=== PATIENT | female | born 1970 | race Caucasian/White ===

== ENCOUNTER 2016-08-08 08:24 | Inpatient (IN) | payer BC ==
[2016-07-10 14:18] VITALS: BMI 39.0
--- NOTE | 2016-07-10 14:42 | PAT Medication Instructions ---
Service Date Jul 10, 2016. Current Home Medication List Baclofen (Lioresal), 20 MG PO TID PRN for PRN Citalopram Hydrobromide (Celexa), 10 MG PO HS Omeprazole (Prilosec), 20 MG PO HS Tramadol (Ultram), 50 MG PO Q6H PRN for industrial eng Instructions For Your Scheduled Surgery - Hold the following medications the morning of surgery: Baclofen (Lioresal), 20 MG PO TID PRN for PRN - Take the following medications the morning of surgery with a sip of water: Tramadol (Ultram), 50 MG PO Q6H PRN for RN (okay to take up to 4 hours prior to surgery if needed) - Take the following medications as scheduled the night before surgery: Omeprazole (Prilosec), 20 MG PO HS Citalopram Hydrobromide (Celexa), 10 MG PO HS Baclofen (Lioresal), 20 MG PO TID PRN for PRN Tramadol (Ultram), 50 MG PO Q6H PRN for RN If you have any questions please call us at [phone] (Megha Worrell PA-C) or [phone] or [phone]
--- NOTE | 2016-07-10 15:04 | DIAGNOSTIC IMAGING REPORT ---
CHEST 2 VIEWS ROUTINE CLINICAL HISTORY: PAT preoperative evaluation COMPARISON STUDY: No previous studies for comparison. FINDINGS: The bones soft tissues and hemidiaphragms are normal. The cardiomediastinal silhouette is normal. The lungs are clear. The pulmonary vasculature is normal. IMPRESSION: Negative chest. Electronically signed by: Rohith Potter M.D. 07/10/2016 3:02 PM
[2016-07-10 15:11] LABS: BASO % 0.6 %; BASO ABS # 0.06 K/uL (0-0.2); COMPLETE YES; EOS % 1.7 %; HEMATOCRIT 39.1 % (37-47); IG% 0.2 %; LYMPH % 37.8 %; LYMPH ABS # 3.61 K/uL (1.2-3.4); MEAN CELL VOLUME 88.1 fL (80-100); MEAN CORPUSCULAR HEMOGLOBIN 30.2 pg (25-34); MEAN CORPUSCULAR HGB CONC 34.3 g/dl (32-36); MONO % 5.7 %; PLATELET COUNT 197 K/uL (130-400); RED BLOOD COUNT 4.44 M/uL (4.2-5.4); WHITE BLOOD COUNT 9.54 K/uL (4.8-10.8)
[2016-07-10 15:15] LABS: URINE APPEARANCE CLEAR (CLEAR); URINE BILIRUBIN NEG (NEG); URINE COLOR YELLOW; URINE NITRITE NEG (NEG); URINE SPECIFIC GRAVITY 1.006 (1.000-1.030); UROBILINOGEN NEG (NEG)
[2016-07-10 15:21] LABS: MANUAL MICROSCOPIC REQUIRED? NO; REVIEW REQ? NO
[2016-07-10 15:50] LABS: BUN/CREATININE RATIO 11.1 (10-20); CREATININE 0.98 mg/dl (0.60-1.20); POTASSIUM 3.4 mmol/L (3.5-5.1)
[2016-07-10 16:02] LABS: CALCIUM 8.9 mg/dl (8.5-10.1)
[2016-08-08] VITALS (8 sets, daily range): BP systolic 97–129; BP diastolic 60–82; PULSE 61–78; TEMP 36.5–36.8; O2SAT 90–99; Ht 165.1 cm; Wt 106.6 kg
[~2016-08-08] VITALS: Ht 165.1 cm; Wt 106.6 kg
[~2016-08-08 08:24] MED LIST: BACL10TA PO; CEFAZOLIN 2000 MG/60 ML D5W IV SCH; CITA10TA8 PO; CeleBREX 200 MG CAP PO SCH; PREGABALIN 75 MG CAP PO SCH; PRLSR20 PO; TRAM-10 PO
[2016-08-08] MEDS: LACTATED RINGER'S 1000ML 1,000 ML IV SCH ×2 (09:15→13:16)
[2016-08-08] MEDS ORDERED: MIDAZOLAM HCL 1 MG/ML 2ML VIAL ONE (09:49)
[2016-08-08] MEDS ORDERED: FENTANYL CITRATE INJ 50 MCG/1 ML 2 ML VIAL ONE ×4 (09:49→12:18)
[2016-08-08] MEDS ORDERED: TAPE50TA5 PO (10:02)
[2016-08-08] MEDS ORDERED: PROMETHAZINE HCL INJ 6.25 MG in SODIUM CHLORIDE 0.9% 50ML 50 ML IV PRN (10:15)
[2016-08-08] MEDS ORDERED: ONDANSETRON INJ 2 MG/ML 2 ML VIAL IV PRN ×2 (10:15→12:00)
[2016-08-08] MEDS ORDERED: EpHEDrine SULFATE INJ 50 MG/ML AMP IV PRN (10:15)
[2016-08-08] MEDS ORDERED: FENTANYL CITRATE INJ 50 MCG/1 ML 2 ML VIAL IV PRN (10:15)
[2016-08-08] MEDS ORDERED: ATROPINE SULFATE 0.1 MG/ML 5ML SYR IV PRN (10:15)
[2016-08-08] MEDS ORDERED: HYDROmorphone INJ 1 MG/ML SYR IV PRN ×2 (10:15→12:00)
--- NOTE | 2016-08-08 10:17 | History and Physical ---
History & Physical Date Aug 08, 2016. Chief Complaint LBP and bilateral leg pain History of Present Illness The patient is a 46 year old female with complaints of above who failed non op management of L4-S1 DDD/facet djd/stenosis. She has BLE radicular pain L>R. no numbness or weakness. Past Medical/Surgical History Medical Problems: (1) Low back pain Surgical Problems: (1) S/P hysterectomy Breast reductioon periph neuropathy smoker obesity Additional History Hepatic Disease: No Endocrine Disorder: No Kidney Disease: No Hypertension: No Heart Disease: No Bleeding Tendencies: No Infectious Diseases: No Allergies Coded Allergies: Codeine (Verified Allergy, Intermediate, GI SYMPTOMS VOMITING, RASH, ) Hydrocodone (Verified Allergy, Intermediate, ITCHING, 08/08/16) Oxycodone (Verified Allergy, Intermediate, ITCHING, 08/08/16) Home Medications Scheduled Citalopram Hydrobromide (Celexa), 10 MG PO HS Omeprazole (Prilosec), 20 MG PO HS Tapentadol Hcl (Nucynta), 50 MG PO Q4 Scheduled PRN Baclofen (Lioresal), 20 MG PO TID PRN for PRN Tramadol (Ultram), 50 MG PO Q6H PRN for RN Physical Examination Skin: warm/dry Eyes: normal inspection, EOMI ENT: normal ENT inspection Head: normocephalic, atraumatic Neck: supple, trachea midline Respiratory/Chest: lungs clear, normal breath sounds, no respiratory distress Cardiovascular: regular rate, rhythm Back: normal inspection Extremities: normal inspection, normal range of motion Neurologic/Psych: no motor/sensory deficits, alert, normal reflexes, oriented x 3 Diagnosis L4-S1 stenosis, facet djd, DDD Plan of Treatment L4-S1 decomp/PLF
--- NOTE | 2016-08-08 10:43 | Anesthesiology Progress Note ---
Anesthesia Post Op Note Date & Time Aug 08, 2016 at 10:42 Vital Signs Pain Intensity: 6 Vital Signs Past 12 Hours Date Time Temp Pulse Resp B/P Pulse Ox O2 Delivery O2 Flow Rate FiO2 08/08/16 09:08 36.8 69 18 129/82 95 Room Air Notes Mental Status: alert / awake / arousable, participated in evaluation Pt Amnestic to Procedure: Yes Nausea / Vomiting: adequately controlled Pain: adequately controlled Airway Patency, RR, SpO2: stable & adequate BP & HR: stable & adequate Hydration State: stable & adequate Anesthetic Complications: no major complications apparent
[2016-08-08] MEDS ORDERED: HYDROmorphone INJ 2 MG/ML SYR/VIAL ONE ×3 (10:48→12:28)
[2016-08-08] MEDS ORDERED: DEXAMETHASONE SOD INJ 4 MG/ML VIAL ONE (11:23)
[2016-08-08] MEDS ORDERED: EpHEDrine SULFATE 50MG/5ML SYR ONE ×2 (11:23→11:56)
[2016-08-08] MEDS ORDERED: LIDOCAINE HCL 2% 2 ML VIAL (20MG/ML) ONE (11:23)
[2016-08-08] MEDS ORDERED: PROPOFOL IV EMULSION 10 MG/ML 20 ML VIAL IV ONE (11:23)
[2016-08-08] MEDS ORDERED: ROCURONIUM BROMIDE 10 MG/ML 5 ML VIAL ONE (11:23)
[2016-08-08] MEDS ORDERED: ONDANSETRON INJ 2 MG/ML 2 ML VIAL ONE ×2 (11:23→11:56)
[2016-08-08] MEDS ORDERED: DURASEAL DURAL SEALANT 5ML TOP ONE (11:43)
[2016-08-08] MEDS ORDERED: BUPIVACAINE/EPINEPHRINE 0.5% MPF 1:200,000 30 ML VIAL INJ ONE (11:43)
[2016-08-08] MEDS ORDERED: THROMBIN 5000 UNITS KIT TOP ONE (11:43)
[2016-08-08] MEDS ORDERED: THROMBIN FOR SOLN 20000 UNIT KIT TOP ONE (11:43)
[2016-08-08] MEDS ORDERED: BACITRACIN 50000 UNIT VIAL IR ONE (11:54)
[2016-08-08] MEDS ORDERED: FLOSEAL HEMOSTATIC MATRIX 10ML TOP ONE (11:54)
[2016-08-08] MEDS ORDERED: SODIUM CHLORIDE 0.9% 1000ML 1,000 ML IV SCH (11:55)
--- NOTE | 2016-08-08 11:55 | [facility] Post Operative Brief Note ---
Immediate Operative Summary Operative Date Aug 08, 2016. Pre-Operative Diagnosis L4-S1 stenosis, facet degenerative joint disease, Degenerative disc disease Post-Operative Diagnosis same as preop Procedure(s) Performed L4-s1 psf Surgeon Dr. Clarke Music Therapist [employer] Surgeon(s) Bharath Juares PA-C Estimated Blood Loss 100 Findings dict Specimens none per surgeon
[2016-08-08] MEDS ORDERED: GLYCOPYRROLATE INJ 0.2 MG/ML VIAL ONE (11:56)
[2016-08-08] MEDS ORDERED: NEOSTIGMINE METHYLSULFATE 1 MG/ML 10ML VIAL ONE (11:56)
[2016-08-08] MEDS ORDERED: PROMETHAZINE HCL INJ 12.5 MG in SODIUM CHLORIDE 0.9% 50ML 50 ML IV PRN (12:00)
[2016-08-08] MEDS ORDERED: BACLOFEN 10 MG TAB PO PRN (12:00)
[2016-08-08] MEDS ORDERED: ALUMINUM/MAGNESIUM SUSP 30 ML UDC PO PRN (12:00)
[2016-08-08] MEDS ORDERED: hydrOXYzine HCL 25 MG TAB PO PRN (12:00)
[2016-08-08] MEDS ORDERED: METOCLOPRAMIDE HCL INJ 5 MG/ML 2 ML VIAL IV PRN (12:00)
[2016-08-08] MEDS ORDERED: FAMOTIDINE 20 MG TAB PO PRN (12:00)
[2016-08-08] MEDS ORDERED: BISACODYL 10 MG SUPP PR PRN (12:00)
[2016-08-08] MEDS ORDERED: MAGNESIUM HYDROXIDE SUSP 30 ML UDC PO PRN (12:00)
[2016-08-08] MEDS ORDERED: LORAZEPAM INJ 0.5 MG in SYRINGE 0.75 ML IV PRN (12:00)
[2016-08-08] MEDS ORDERED: SOD PHOSPHATE/SOD BIPHOSPHATE ENEMA 132 ML BTL PR PRN (12:00)
[2016-08-08] MEDS ORDERED: TAPENTADOL HCL 50 MG TAB PO PRN (12:00)
[2016-08-08] MEDS ORDERED: ACETAMINOPHEN IV 100 ML IV PRN (12:00)
[2016-08-08] MEDS ORDERED: NALOXONE HCL 0.4 MG/1 ML VIAL/CARP IV PRN ×2 (12:00)
[2016-08-08] MEDS ORDERED: ESMOLOL HCL 10 MG/ML 10 ML VIAL ONE (12:16)
--- NOTE | 2016-08-08 12:16 | DIAGNOSTIC IMAGING REPORT ---
LUMBAR SPINE, INTRAOPERATIVE FLUOROSCOPY HISTORY: L4-S1 decompression and fusion. FLUOROSCOPY TIME: 9 seconds. FINDINGS: Intraoperative fluoroscopy was provided for the lumbar spine. 2 fluoroscopic spot images were obtained. Posterior decompression fusion from L4 through S1 with pedicle screws and rods. The hardware appears intact. There is an L5-S1 disc spacer. IMPRESSION: Fluoroscopy provided for a L4-S1 posterior decompression and fusion. Electronically signed by: Colby Tyson M.D. 08/08/2016 12:14 PM
[2016-08-08] MEDS ORDERED: HYDROmorphone INJ 1 MG/ML SYR ONE (12:58)
[2016-08-08] MEDS ORDERED: NURSING VERBAL MED ORDER ONE ×3 (13:15→16:15)
--- NOTE | 2016-08-08 13:25 | Anesthesiology Progress Note ---
Anesthesia Post Op Note Date & Time Aug 08, 2016 at 13:25 Vital Signs Pain Intensity: 7 Vital Signs Past 12 Hours Date Time Temp Pulse Resp B/P Pulse Ox O2 Delivery O2 Flow Rate FiO2 08/08/16 13:10 80 12 120/70 98 Nasal Cannula 2 08/08/16 13:00 78 16 106/58 94 Nasal Cannula 2 08/08/16 12:50 80 20 95/57 98 Nasal Cannula 2 08/08/16 12:40 81 18 139/80 98 Nasal Cannula 2 08/08/16 12:30 79 14 117/85 100 Mask 10 08/08/16 12:20 87 16 125/78 94 Mask 10 08/08/16 12:14 37.0 89 17 125/69 97 Mask 10 08/08/16 09:08 36.8 69 18 129/82 95 Room Air Notes Mental Status: alert / awake / arousable, participated in evaluation Pt Amnestic to Procedure: Yes Nausea / Vomiting: adequately controlled Pain: adequately controlled Airway Patency, RR, SpO2: stable & adequate BP & HR: stable & adequate Hydration State: stable & adequate Anesthetic Complications: no major complications apparent
[2016-08-08] MEDS ORDERED: LACTATED RINGER'S 1000ML 1,000 ML IV SCH (14:30)
[2016-08-08] MEDS: DEXAMETHASONE INJ 6 MG in SYRINGE 0 ML IV SCH (17:48)
[2016-08-08] MEDS: CEFAZOLIN IV 2,000 MG in DEXTROSE 5% 50ML 50 ML IV SCH (17:48)
[2016-08-08] MEDS: TRAMADOL HCL 50 MG TAB PO PRN ×2 (18:15→22:29)
[2016-08-08] MEDS ORDERED: PANTOprazole SOD 40 MG TAB PO SCH (21:00)
[2016-08-08] MEDS ORDERED: CITALOPRAM 20 MG TAB PO SCH (21:00)
[2016-08-08] MEDS ORDERED: DOCUSATE SODIUM/SENNA 50/8.6MG TAB PO SCH (21:00)
[2016-08-08] MEDS: LORAZEPAM 0.5 MG TAB PO PRN ×2 (22:29→23:42)
[2016-08-09 00:17] VITALS: BP 115/74
[2016-08-09] MEDS ORDERED: NURSING VERBAL MED ORDER ONE (01:30)
[2016-08-09] MEDS: CEFAZOLIN IV 2,000 MG in DEXTROSE 5% 50ML 50 ML IV SCH (01:37)
[2016-08-09] MEDS: DEXAMETHASONE INJ 6 MG in SYRINGE 0 ML IV SCH ×2 (01:38→09:15)
[2016-08-09 03:48] VITALS: BP 120/71; PULSE 56; TEMP 36.7; O2SAT 90
[2016-08-09] MEDS ORDERED: DC PCA SCH (06:00)
[2016-08-09 06:44] LABS: COMPLETE YES; HEMATOCRIT 34.2 % (37-47); IG% 0.3 %; LYMPH % 10.3 %; LYMPH ABS # 1.21 K/uL (1.2-3.4); MEAN CELL VOLUME 88.1 fL (80-100); MEAN CORPUSCULAR HEMOGLOBIN 30.2 pg (25-34); MEAN CORPUSCULAR HGB CONC 34.2 g/dl (32-36); MEAN PLATELET VOLUME 11.9 fL (7.4-10.4); MONO % 1.1 %; NEUT % 88.3 %; PLATELET COUNT 163 K/uL (130-400); RED BLOOD COUNT 3.88 M/uL (4.2-5.4); WHITE BLOOD COUNT 11.73 K/uL (4.8-10.8)
[2016-08-09 07:24] LABS: BUN/CREATININE RATIO 10.8 (10-20); CREATININE 0.75 mg/dl (0.60-1.20); POTASSIUM 4.2 mmol/L (3.5-5.1)
[2016-08-09 07:59] VITALS: BP 110/60; PULSE 56; TEMP 36.7; O2SAT 94
[2016-08-09 08:14] VITALS: O2SAT 94
--- NOTE | 2016-08-09 08:56 | Anesthesiology Progress Note ---
Anesthesia Post Op Note Date & Time Aug 09, 2016 at 08:55 Vital Signs Pain Intensity: 0.0 Vital Signs Past 12 Hours Date Time Temp Pulse Resp B/P Pulse Ox O2 Delivery O2 Flow Rate FiO2 08/09/16 08:14 94 Room Air 08/09/16 07:59 36.7 56 18 110/60 94 Room Air 08/09/16 07:10 Room Air 08/09/16 03:48 36.7 56 16 120/71 90 Room Air 08/09/16 00:17 115/74 08/08/16 23:35 Room Air 08/08/16 23:17 36.7 61 16 97/60 94 Room Air Notes Mental Status: alert / awake / arousable, participated in evaluation Pt Amnestic to Procedure: Yes Nausea / Vomiting: adequately controlled Pain: adequately controlled Airway Patency, RR, SpO2: stable & adequate BP & HR: stable & adequate Hydration State: stable & adequate Anesthetic Complications: no major complications apparent
[2016-08-09] MEDS: TRAMADOL HCL 50 MG TAB PO PRN (09:20)
[2016-08-09] MEDS ORDERED: TRAM-10 PO (11:00)
--- NOTE | 2016-08-09 11:00 | Discharge Instructions ---
Discharge Instructions Admission Reason for Admission: Lumbar Spinal Stenosis Discharge Discharge Diagnosis / Problem: ddd Discharge Goals Goal(s): Decrease discomfort Activity Recommendations Activity Limitations: per Instructions/Follow-up section . Instructions / Follow-Up Instructions / Follow-Up ACTIVITY RECOMMENDATIONS: SELF CARE INSTRUCTIONS AFTER THORACIC/LUMBAR FUSIONS 1. You may walk to your tolerance. It is good exercise for your legs and back. Expect some back and intermittent leg aches and pains. 2. You may perform "counter-top" level activities (make a sandwich, [place] with a project, etc.). 3. No bending or lifting of more than 10 pounds or back twisting of any nature (roll like a log when turning in bed). 4. You may ride in a car for 20-30 minutes at a time. No driving until after your first visit with your doctor. 5. Frequent changes of position and restricting sitting to 30 minutes at a time will help limit the amount of back spasms and stiffness you may experience. 6. You may discontinue the use of ambulatory aids (cane, crutches, etc.) once your strength and confidence allow. 7. You may investment sales assistant the shower and let water strike your incision when you arrive home at least once daily. Do not take a tub bath, sit in a hot tub or go into a swimming pool until after your first recheck in the office. SPECIAL CARE INSTRUCTIONS: VERY IMPORTANT TO READ AND REVIEW A. Your surgical incision has been closed with a cosmetic suture under the skin that will dissolve in about 6 weeks. In 14 days, you can use a pair of clean scissors and cut the suture that is left outside of the skin at the ends of your incision. 1. The small skin tapes can be removed 7 days after surgery if they have not fallen off by that point. 2. You may keep the wound open to air as much as possible to promote healing after post-op day number 5 unless told otherwise by your doctor. 3. If you think the wound looks like it is becoming infected (redness or worsening drainage) and/or you are experiencing fever, chill or worsening back pain and muscle spasms, contact the office so that we may evaluate you as soon as possible. B. Complications are uncommon, but please contact us if you have any signs or symptoms of: 1. wound infection (fever higher than 102.5 degrees F, redness, separation of wound, drainage, or increasing pain from the incision) 2. blood clots in legs (pain, swelling, redness and warmth in legs) 3. urinary tract infection (fever higher than 102.5 degrees F, burning upon urination or increased frequency of urination) 4. nerve problems (inability to walk on your toes or heels, numbness, loss of bowel or bladder control) 5. any other symptoms that concern you C. Please call the office at if you have any concerns or questions about your operation or recovery. D. No smoking! Smoking drastically decreases the chance of a solid fusion. E. Do not take any anti-inflammatory medications (Indocin, Advil, Motrin, Aspirin, Naprosyn, etc.) as these may inhibit the chance of a solid fusion. Tylenol is okay to take for pain. MANAGING PAIN AFTER SPINAL SURGERY 1. Narcotic medication is intended for short-term use and will be provided for surgical pain. Surgical pain usually lasts for a period of 4-6 weeks. Narcotic medication includes Percocet, Vicodin, Darvocet, Tylenol #3 or Lortab. 2. Longer-term pain is more appropriately treated with non-narcotic medication such as Tylenol ES. 3. Muscle spasm is not appropriately treated with narcotics. Muscle relaxers such as Soma, Flexeril or Skelaxin can be used along with Tylenol ES. 4. Remember that we all live with some "aches and pains". This is not unusual or uncommon after an injury or as we get older. a. Back pain is expected and may include muscle spasms for 4 to 6 weeks after surgery. The pain should gradually improve. If the pain worsens for no apparent reason, please contact the office. b. Intermittent leg pain may also be experienced and should not be concerned about unless it worsens for no apparent reason. If so, please contact the office. 5. We will provide appropriate medication within the normal guidelines of their prescribed use. We will also be very cautious and aware of potential abuse and extended duration of patients' medication needs. a. Pain medications are for your comfort and to assist with sleep and rest so that the tissue can heal. They are not provided in order to return to normal activity and should not be used through the day. To do so or worsening pain at night can result from ongoing tissue damage and development of tolerance to the prescribed medicine. 6. Please allow 2-3 days to process refills. Prescriptions will not be mailed but must be picked up at the office. FOLLOW UP VISIT: Keep your scheduled follow-up appointment. Any questions, please call the office at . Current Hospital Diet Patient's current hospital diet: Regular Diet Discharge Diet Recommended Diet: Regular Diet Procedures Procedures Performed: L4-S1 Decompression and Instrumented Fusion; Interbody Fusion with application of interbody cage at L5-S1, Bone Morphogenetic Protein, Use of Arteriocyte Pending Studies Studies pending at discharge: no Medical Emergencies . Who to Call and When: Medical Emergencies: If at any time you feel your situation is an emergency, please call 911 immediately. . Non-Emergent Contact Non-Emergency issues call your: Primary Care Provider . "Provider Documentation" section prepared by Brad Clarke. VTE Core Measure Inpt VTE Proph given/why not?: SCD's
--- NOTE | 2016-08-09 11:02 | Orthopedic Progress Note ---
Orthopedic Progress Note Date of Service Aug 09, 2016. Subjective Post OP Day: 1 Reports: feeling well, pain controlled w PO medications Objective calves soft nontender, N/V intact, dressing C/D/I, A&O x3, hemovac drainage Date Time Temp Pulse Resp B/P Pulse Ox O2 Delivery O2 Flow Rate FiO2 08/09/16 08:14 94 Room Air 08/09/16 07:59 36.7 56 18 110/60 94 Room Air 08/09/16 07:10 Room Air 08/09/16 03:48 36.7 56 16 120/71 90 Room Air 08/09/16 00:17 115/74 08/08/16 23:35 Room Air 08/08/16 23:17 36.7 61 16 97/60 94 Room Air 08/08/16 19:29 36.8 77 20 120/75 97 Room Air 08/08/16 17:25 36.6 73 16 104/66 98 Room Air 08/08/16 16:11 36.6 78 16 113/76 90 Room Air 08/08/16 15:30 Nasal Cannula 2.0 08/08/16 15:14 36.5 71 18 109/73 93 Nasal Cannula 2.0 08/08/16 14:51 76 16 107/70 94 2.0 08/08/16 14:27 Nasal Cannula 2.0 08/08/16 14:24 36.6 72 16 110/72 99 Nasal Cannula 2.0 08/08/16 14:23 99 Nasal Cannula 2.0 08/08/16 13:40 78 14 121/59 94 Nasal Cannula 2 08/08/16 13:30 71 13 99/73 97 Nasal Cannula 2 08/08/16 13:20 36.3 73 14 121/60 97 Nasal Cannula 2 08/08/16 13:10 80 12 120/70 98 Nasal Cannula 2 08/08/16 13:00 78 16 106/58 94 Nasal Cannula 2 08/08/16 12:50 80 20 95/57 98 Nasal Cannula 2 08/08/16 12:40 81 18 139/80 98 Nasal Cannula 2 08/08/16 12:30 79 14 117/85 100 Mask 10 08/08/16 12:20 87 16 125/78 94 Mask 10 08/08/16 12:14 37.0 89 17 125/69 97 Mask 10 Laboratory Results 24 Hours: Test 08/09/16 06:05 White Blood Count 11.73 K/uL Red Blood Count 3.88 M/uL Hemoglobin 11.7 g/dL Hematocrit 34.2 % Mean Corpuscular Volume 88.1 fL Mean Corpuscular Hemoglobin 30.2 pg Mean Corpuscular Hemoglobin Concent 34.2 g/dl Platelet Count 163 K/uL Mean Platelet Volume 11.9 fL Neutrophils (%) (Auto) 88.3 % Lymphocytes (%) (Auto) 10.3 % Monocytes (%) (Auto) 1.1 % Eosinophils (%) (Auto) 0.0 % Basophils (%) (Auto) 0.0 % Neutrophils # (Auto) 10.36 K/uL Lymphocytes # (Auto) 1.21 K/uL Monocytes # (Auto) 0.13 K/uL Eosinophils # (Auto) 0.00 K/uL Basophils # (Auto) 0.00 K/uL Assessment & Plan Assessment: doing great Plan: d/c home if drain slows. Discharge Planning Discharge Planning: home Pain Management: Ultram DVT Prophylaxis: TEDs, SCDs
[2016-08-09 11:25] VITALS: BP 110/60; PULSE 56; TEMP 36.7; O2SAT 94
[2016-08-10] MEDS ORDERED: POLYETHYLENE (MIRALAX) 17 GM PACK PO SCH (06:00)
--- NOTE | 2016-08-13 19:12 | OPERATIVE REPORT ---
DATE OF OPERATION: 08/08/2016 PREOPERATIVE DIAGNOSES: L5-S1 and L4-L5 spinal stenosis, facet arthrosis and degenerative disc disease. POSTOPERATIVE DIAGNOSES: Same. PROCEDURES: 1. L4 and L5 laminectomies with left L4-L5 and L5-S1 medial facetectomies. 2. Segmental pedicle screw instrumentation -- bilateral L4, L5 and S1 with K2M Kane pedicle screws. 3. Posterolateral fusion L4-S1 -- bilateral with Infuse BMP on a collagen sponge, tricalcium phosphate, local bone, bone putty, bone marrow aspirate. 4. Left L5-S1 transforaminal lumbar interbody fusion with K2M titanium mesh through the interbody cage, bone putty, bone marrow aspirate and Infuse BMP. 5. Right iliac crest bone marrow aspiration, stem cell concentrate with Arteriocyte, application of bone graft. SURGEON: Dr. Clarke. HAND BINDER CUTTER: Tod Juares PA-C. Please note he participated in all portions of the procedure and was critical for performance of the procedure, participated in positioning, prepping, draping, retraction and wound closure. ANESTHESIA: General endotracheal anesthesia. COMPLICATIONS: None. ESTIMATED BLOOD LOSS: Per anesthesia record. PROCEDURE IN DETAIL: After identification of patient and operative level, she was brought to the OR where she underwent induction of general anesthesia. She was then positioned prone on [facility] OR table with all bony prominences well padded. Care was taken to avoid pressure on the periorbital area. Lumbosacral area was sterilely prepped and draped in usual fashion. Antibiotics were administered. Time-out was performed. Level was confirmed and skin incision was infiltrated with 0.5% Marcaine with epinephrine. I made a skin incision from spinous process of L3 to the sacrum, performed routine posterior exposure of the tips of the transverse process and placed Gelpi retractors. I confirmed level with fluoroscopy and then did a decompression with removal of lamina on the left at L4-5 and L5-S1 as well as the intervening ligamentum flavum and the medial facets to accomplish decompression as necessary based upon MRI findings. I then palpated all nerve roots that were decompressed at L4, L5 and S1 and then applied FloSeal. I placed pedicle screws bilaterally at L4, L5 and S1 with K2M Kane pedicle screws. I checked screw lengths, trajectory and position with fluoroscopy. I then did a complete discectomy on the left at L5-S1, prepared the disk space for cage insertion. After preparation of the disk space, I filled the cage with local bone, bone marrow aspirate, bone putty and small strip of Infuse and inserted into the disc, restored the disc height nicely. It was stable following insertion. I then lowered the Jered frame to restore lordosis, applied rods and end caps for final tightening from L4 to the sacrum, then irrigated with bacitracin solution. Bone marrow aspirate was taken from the right iliac crest via separate stab incision, concentrated with Arteriocyte and mixed with bone graft. I then decorticated the transverse process of L4, L5 and the sacral ala bilaterally with a high speed bur and packed the lateral gutters with bone graft mixture. I then confirmed hemostasis and closed in layered fashion over ARTUR drain. All sponge and needle counts were correct at the end of the case. I attest to the content of the Intraoperative Record and any orders documented therein. Any exceptio ns are noted below.
--- NOTE | 2016-08-19 00:15 | DISCHARGE SUMMARY ---
PRINCIPAL DIAGNOSIS: L5-S1 and L4-L5 spinal stenosis and facet arthrosis with degenerative disc disease. POSTOPERATIVE DIAGNOSIS: Removal of L4-S1 decompression and fusion procedure. SURGEON: Dr. Brad Clarke. SPECIAL EDUCATION INCLUSION TEACHER: Tod Juares PA-C. HISTORY OF PRESENT ILLNESS: Please refer to EMR. HOSPITAL COURSE: On 08/08/2015, Ms. Villa was admitted to [facility] with the above diagnosis. She was taken to preoperative holding where she was identified and evaluated and cleared for surgical procedure. Transported to the operating room, introduced with general endotracheal anesthesia. Sterile conditions were set and she successfully underwent the above procedure without complication or issues. She was awakened from anesthesia in stable and satisfactory condition and transported to postoperative recovery. Here her vital signs and pain were monitored and managed. She remained medically stable. She was taken to the orthopedic floor for continued care. Throughout her stay, her vital signs and labs were monitored and managed. Her pain was well controlled. She participated in physical therapy with no complications or issues. DVT and GI prophylactic measures were taken. The patient remained medically stable with no iatrogenic or postoperative complications. She was evaluated on 08/09/2016 by physician and indicated for return home. On this date, she was discharged from [facility]. DISPOSITION: Home. DISPOSITION CONDITION: Stable. NOTED COMPLICATIONS OR ISSUES: Zero. DISCHARGE INSTRUCTIONS: Please refer to EMR.
== END 2016-08-09 12:23 | disposition home health service (06) | DRG 460 ==
LOC: ENRESERVTM → ENRESERVDT → C.ACU 08:24 → C.3E 11:58
PROVIDERS: ADMIT Orthopaedic Surgery Orthopaedic Surgery of the Spine; ATTEND Orthopaedic Surgery Orthopaedic Surgery of the Spine
PROC: 0ST40ZZ Resection of Lumbosacral Disc, Open Approach (ICD-10-PCS; 2016-08-08)
PROC: 07DR3ZZ Extraction of Iliac Bone Marrow, Percutaneous Approach (ICD-10-PCS; 2016-08-08)
PROC: 3E0V0GB Introduction of Recombinant Bone Morphogenetic Protein into Bones, Open Approach (ICD-10-PCS; 2016-08-08)
PROC: 0SG30A1 (ICD-10-PCS; principal; 2016-08-08 10:15)
DX: M48.07 Spinal stenosis, lumbosacral region (principal); M51.37 Other intervertebral disc degeneration, lumbosacral region; E66.9 Obesity, unspecified; F17.210 Nicotine dependence, cigarettes, uncomplicated; G62.9 Polyneuropathy, unspecified; Z90.710 Acquired absence of both cervix and uterus; Z68.39 Body mass index [BMI] 39.0-39.9, adult; Z88.5 Allergy status to narcotic agent; Z79.899 Other long term (current) drug therapy

== ENCOUNTER 2022-11-02 20:49 | Observation (INO) ==
[2022-11-02] MEDS ORDERED: ONDANSETRON INJ 2 MG/ML 2 ML VIAL IV STA (21:45)
[2022-11-02] MEDS ORDERED: MoRPHine SULFATE 4 MG/ML 1 ML CARP\\VIAL IV STA ×2 (21:45→23:20)
[2022-11-02] MEDS ORDERED: FAMOTIDINE 20MG IV PUSH 20 MG/5 ML SYR IV STA (21:45)
[2022-11-02] MEDS ORDERED: SODIUM CHLORIDE 0.9% 1000ML 1,000 ML IV STA (21:45)
[2022-11-02 22:04] LABS: Appearance Urine Clear (Clear); Bilirubin Urine Negative (Negative); Blood Urine Negative (Negative); Color Urine Yellow; Glucose Urine UA Negative (Negative); Ketones Urine Trace (Negative); Leukocyte Esterase Urine Negative (Negative); Nitrite Urine Negative (Negative); Protein Urine Negative (Negative); Urobilinogen Urine Negative (Negative); pH Urine 8.5 (4.5-7.5)
--- NOTE | 2022-11-02 22:04 | Emergency Department Note ---
History of Present Illness General Chief complaint: Abdominal Pain Stated complaint: ABDOMINAL PAIN, VOMITING Time Seen by Provider: 11/02/22 21:25 History of Present Illness Maximum Pain Intensity: 9 This 52-year-old female presents to the ER with family complaining of epigastric right upper quadrant pain tonight after eating pulled pork for dinner. She has known gallstones with sludge. She is preparing to have a gastric bypass surgery and had a scan that showed this. Patient denies chest pain, dyspnea, fevers, vomiting, diarrhea, flulike illness. Feels different than her reflux. Home Medications Medication Instructions Recorded Confirmed Type cyanocobalamin (vitamin B-12) 1,000 mcg PO QAM 10/03/20 11/02/22 History 1,000 mcg tablet (Vitamin B-12) duloxetine 60 mg capsule,delayed 60 mg PO HS 10/03/20 11/02/22 History release (Cymbalta) omeprazole magnesium 20 mg 20 mg PO QAM 10/06/20 11/02/22 History capsule,delayed release cyclobenzaprine 10 mg tablet 10 mg PO HS PRN Muscle Spasm 11/02/22 11/02/22 History gabapentin 400 mg capsule 400 mg PO QAM 11/02/22 11/02/22 History gabapentin 600 mg tablet 600 mg PO HS 11/02/22 11/02/22 History liraglutide (weight loss) 3 mg/0.5 2.4 mg subcut QAM 11/02/22 11/02/22 History mL (18 mg/3 mL) subcut pen injector (Saxenda) meloxicam 15 mg tablet 15 mg PO HS 11/02/22 11/02/22 History Allergies Allergy/AdvReac Type Severity Reaction Status Date / Time codeine Allergy Intermediate GI Verified 11/02/22 21:50 SYMPTOMS VOMITING, RASH hydrocodone Allergy Intermediate ITCHING Verified 11/02/22 21:50 with severe vomiting oxycodone Allergy Intermediate severe Verified 11/02/22 21:50 vomiting and itching Past Med/Surg History Medical History Ankle fracture, right Anxiety GERD (gastroesophageal reflux disease) Low back pain Surgical History History of lumbar spinal fusion Hx of hand surgery left middle finger cyst removed S/P hysterectomy Social History Smoking Status: Former smoker Tobacco Type: Cigarettes Cigarettes Per Day: 1ppd; Second Hand Exposure: No; Hx Alcohol Use: No Hx Substance Use: No Preferred Language: Estonian Communication Ability: Effective Animal Keeper Required: No Beliefs That Will Affect Care: None Current Living Situation: Spouse and Family Feels Safe at Home: Yes Assistive Devices: Contacts, Glasses and Walker Review of Systems A total of 10 systems reviewed and were otherwise negative Physical Exam Vital Signs Vital Signs - 24 hr 11/02/22 20:52 11/02/22 22:03 11/02/22 22:30 Temperature 36.6 C Temperature Source Temporal Artery Scan Pulse Rate 87 86 78 Pulse Rate [Finger] Respiratory Rate 18 20 Respiratory Effort / Characteristics Non-Labored Spontaneous Respiratory Depth Normal Respiratory Pattern Regular Blood Pressure 115/71 Blood Pressure [Right Arm] Blood Pressure Mean 85 Blood Pressure Mean [Right Arm] Pulse Oximetry 97 100 Oxygen Delivery Method Room Air Room Air Sepsis Recent Fever Within 48 Hours No Sepsis New/Unexplained Change in Mental Status No Sepsis Action Taken by Nursing No Action Required 11/03/22 00:48 Temperature Temperature Source Pulse Rate Pulse Rate [Finger] 80 Respiratory Rate 20 Respiratory Effort / Characteristics Non-Labored Spontaneous Respiratory Depth Normal Respiratory Pattern Blood Pressure Blood Pressure [Right Arm] 123/70 Blood Pressure Mean Blood Pressure Mean [Right Arm] 87 Pulse Oximetry 97 Oxygen Delivery Method Room Air Sepsis Recent Fever Within 48 Hours Sepsis New/Unexplained Change in Mental Status Sepsis Action Taken by Nursing VITALS: Vitals are noted on the nurse's note and reviewed by myself. Vital signs stable. GENERAL: Pleasant female with present, in no acute distress, nondiaphoretic, well-developed well-nourished. SKIN: The skin was without rashes, erythema, or bruising. There is no tenting of the skin. Capillary reflex less than 2 seconds. HEAD: Normocephalic atraumatic. EARS: External auditory canals clear, EYES: Pupils equal round and reactive to light and accommodation. Conjunctivae without injection, sclerae without icterus. Extraocular movements intact. NOSE: Patent, turbinates without inflammation or discharge. MOUTH: Mucous membranes moist. Pharynx without erythema or exudate. Uvula midline. Airway patent. Tongue does not deviate. NECK: Supple without nuchal rigidity. No lymphadenopathy. No thyromegaly. C ervical spine is nontender. No JVD. HEART: Regular rate and rhythm LUNGS: Clear to auscultation bilaterally without wheezes, rales or rhonchi. No retractions or accessory muscle use. ABDOMEN: Positive bowel sounds x 4. Normal tympanic percussion. Soft, tender epigastric right upper quadrant, without masses or organomegaly. No guarding or rebound tenderness. No CVA tenderness MUSCULOSKELETAL: No muscle atrophy, erythema, noted. NEURO: Patient was alert and oriented to person place and time. Normal sensation to light and sharp touch. No focal neurological deficits. Course Administered Medications Piperacillin Sod/Tazobactam Sod (Zosyn) 4.5 gm in 120 mls @ 240 mls/hr IV NOW ONE Stop: 11/03/22 01:57 Last Admin: 11/03/22 01:37 Dose: 240 mls/hr Documented By: LAURITA Discontinued Medications Sodium Chloride (Nss 1000ml) 1,000 mls @ 999 mls/hr IV .Q1H1M STA Stop: 11/02/22 22:45 Last Infusion: 11/02/22 23:17 Dose: 0 mls/hr Documented By: Admin: 11/02/22 21:56 Dose: 999 mls/hr Documented By: KRISTINA Famotidine (Pepcid 20mg Iv Push) 20 mg in 5 mls @ 2.5 mls/min IV NOW STA Stop: 11/02/22 21:46 Last Admin: 11/02/22 21:56 Dose: 2.5 mls/min Documented By: KRISTINA Ioversol (Optiray 350 100ml) 84 ml IV ONCE ONE Stop: 11/03/22 00:33 Last Admin: 11/03/22 00:30 Dose: 84 ml Documented By: DAISY Morphine Sulfate (Morphine Sulfate 4 Mg/Ml 1 Ml Carp\Vial) 4 mg IV NOW STA Stop: 11/02/22 21:46 Last Admin: 11/02/22 22:01 Dose: 4 mg Documented By: KRISTINA Morphine Sulfate (Morphine Sulfate 4 Mg/Ml 1 Ml Carp\Vial) 4 mg IV NOW STA Stop: 11/02/22 23:21 Last Admin: 11/02/22 23:23 Dose: 4 mg Documented By: LAURITA Ondansetron HCl (Ondansetron Inj 2 Mg/Ml 2 Ml Vial) 4 mg IV NOW STA Stop: 11/02/22 21:46 Last Admin: 11/02/22 22:02 Dose: 4 mg Documented By: KRISTINA Medical Decision Making Medical Records Attestation: I reviewed the patient's medical records. Home Medications Current Medication List: was personally reviewed by me Laboratory Data Attestation: I reviewed the patient's lab results. 11/02/22 21:07 11/02/22 21:07 Lab Results 11/02/22 11/02/22 11/02/22 Range/Units 21:07 21:07 21:51 WBC 12.31 H (4.8-10.8) K/ul RBC 4.15 L (4.20-5.40) M/uL Hgb 12.4 (12.0-16.0) g/dl Hct 35.9 L (37.0-47.0) % MCV 86.5 (80.0-100.0) fL MCH 29.9 (25.0-34.0) pg MCHC 34.5 (32.0-36.0) g/dL RDW Std Deviation 44.8 (36.4-46.3) fL RDW Coeff of Leonor 14.1 (11.5-14.5) % Plt Count 216 (130-400) K/uL MPV 12.1 (9.4-12.4) fL Immature Gran % (Auto) 0.5 % Neut % (Auto) 69.4 % Lymph % (Auto) 23.8 % [place] % (Auto) 4.5 % Eos % (Auto) 1.0 % Baso % (Auto) 0.8 % Neut # (Auto) 8.54 H (1.40-6.50) K/uL Lymph # (Auto) 2.93 (1.2-3.4) K/uL [place] # (Auto) 0.56 (0.11-0.59) K/uL Eos # (Auto) 0.12 (0-0.50) K/uL Baso # (Auto) 0.10 (0-0.2) K/uL Immature Gran # (Auto) 0.06 (0.01-0.20) K/uL Sodium 139 (136-145) mmol/L Potassium 3.6 (3.5-5.1) mmol/L Chloride 103 (98-107) mmol/L Carbon Dioxide 27 (21-32) mmol/L Anion Gap 9 (3-11) BUN 19 (6-23) mg/dl Creatinine 0.94 (0.6-1.2) mg/dl Est Cr Clr Drug Dosing 80.3 ml/min Est GFR ( Amer) 79.7 ml/min Est GFR (Non-Af Amer) 68.8 ml/min BUN/Creatinine Ratio 20.2 H (10-20) Glucose 111 H (70-99(Fasting)) mg/dl Calcium 9.9 (8.6-10.3) mg/dl Total Bilirubin 0.8 (0.2-1.0) mg/dl AST 42 H (13-39) U/L ALT 32 (7-52) U/L Alkaline Phosphatase 126 H (34-104) U/L Troponin I High Sens 4.2 (0-14) pg/ml Total Protein 7.6 (6.0-8.3) gm/dl Albumin 4.3 (3.4-5.0) gm/dl Globulin 3.3 (2.5-4.0) gm/dl Albumin/Globulin Ratio 1.3 (0.9-2) Lipase 66 (11-82) U/L Urine Color Yellow Urine Appearance Clear (Clear) Urine pH 8.5 H (4.5-7.5) Ur Specific [place] 1.010 (1.000-1.030) Urine Protein Negative (Negative) Urine Glucose (UA) Negative (Negative) Urine Ketones Trace H (Negative) Urine Blood Negative (Negative) Urine Nitrite Negative (Negative) Urine Bilirubin Negative (Negative) Urine Urobilinogen Negative (Negative) Ur Leukocyte Esterase Negative (Negative) 11/03/22 Range/Units 00:01 WBC (4.8-10.8) K/ul RBC (4.20-5.40) M/uL Hgb (12.0-16.0) g/dl Hct (37.0-47.0) % MCV (80.0-100.0) fL MCH (25.0-34.0) pg MCHC (32.0-36.0) g/dL RDW Std Deviation (36.4-46.3) fL RDW Coeff of Leonor (11.5-14.5) % Plt Count (130-400) K/uL MPV (9.4-12.4) fL Immature Gran % (Auto) % Neut % (Auto) % Lymph % (Auto) % [place] % (Auto) % Eos % (Auto) % Baso % (Auto) % Neut # (Auto) (1.40-6.50) K/uL Lymph # (Auto) (1.2-3.4) K/uL [place] # (Auto) (0.11-0.59) K/uL Eos # (Auto) (0-0.50) K/uL Baso # (Auto) (0-0.2) K/uL Immature Gran # (Auto) (0.01-0.20) K/uL Sodium (136-145) mmol/L Potassium (3.5-5.1) mmol/L Chloride (98-107) mmol/L Carbon Dioxide (21-32) mmol/L Anion Gap (3-11) BUN (6-23) mg/dl Creatinine (0.6-1.2) mg/dl Est Cr Clr Drug Dosing ml/min Est GFR ( Amer) ml/min Est GFR (Non-Af Amer) ml/min BUN/Creatinine Ratio (10-20) Glucose (70-99(Fasting)) mg/dl Calcium (8.6-10.3) mg/dl Total Bilirubin (0.2-1.0) mg/dl AST (13-39) U/L ALT (7-52) U/L Alkaline Phosphatase (34-104) U/L Troponin I High Sens 4.5 (0-14) pg/ml Total Protein (6.0-8.3) gm/dl Albumin (3.4-5.0) gm/dl Globulin (2.5-4.0) gm/dl Albumin/Globulin Ratio (0.9-2) Lipase (11-82) U/L Urine Color Urine Appearance (Clear) Urine pH (4.5-7.5) Ur Specific [place] (1.000-1.030) Urine Protein (Negative) Urine Glucose (UA) (Negative) Urine Ketones (Negative) Urine Blood (Negative) Urine Nitrite (Negative) Urine Bilirubin (Negative) Urine Urobilinogen (Negative) Ur Leukocyte Esterase (Negative) Imaging Data Attestation: I personally reviewed and interpreted this imaging study as follo ws: Radiologist's Impression: Gallbladder Ultrasound 11/02/22 21:45 Exam(s): US GALLBLADDER EXAM: US Abdomen Limited, Gallbladder CLINICAL HISTORY: Reason for exam: ruq pain. TECHNIQUE: Real-time ultrasound of the right upper quadrant with image documentation. COMPARISON: Dated 04/10/15 FINDINGS: Gallbladder: The gallbladder is partially collapsed with adenomyomatosis. There is sludge versus small stones. Common bile duct: Unremarkable as visualized. No stones. No dilation. Pancreas: Unremarkable as visualized. Right kidney: The right kidney measures 12.1 cm. IMPRESSION: Adenomyomatosis of the underdistended gallbladder without signs of cholecystitis. Possible small stones. No evidence for choledocholithiasis. Electronically signed by: Danny King MD 11/03/22 00:07 AM Abdomen/Pelvis CT 11/02/22 23:17 Exam(s): CT ABDOMEN + PELVIS With Contrast EXAM: CT Abdomen and Pelvis With Intravenous Contrast CLINICAL HISTORY: Reason for exam: mid abd pain. TECHNIQUE: Axial computed tomography images of the abdomen and pelvis with intravenous contrast. CTDI is 26.65 mGy and DLP is 1348.89 mGy-cm. Automated exposure control was utilized for the study. A dose lowering technique was utilized adhering to the principles of ALARA. CONTRAST: Contrast must be dictated COMPARISON: Dated 04/10/15 FINDINGS: Lung bases: Unremarkable. No mass. No consolidation. ABDOMEN: Liver: Unremarkable. No mass. Gallbladder and bile ducts: Mild wall thickening of the gallbladder with some pericholecystic stranding. No ductal dilation. Pancreas: Unremarkable. No mass. No ductal dilation. Spleen: Unremarkable. No splenomegaly. Adrenals: Unremarkable. No mass. Kidneys and ureters: Unremarkable. No solid mass. No hydronephrosis. Stomach and bowel: Unremarkable. No obstruction. No mucosal thickening. PELVIS: Appendix: No findings to suggest acute appendicitis. Bladder: Unremarkable. No mass. Reproductive: Unremarkable as visualized. ABDOMEN and PELVIS: Intraperitoneal space: Unremarkable. No free air. No significant fluid collection. Bones/joints: No acute fracture. No dislocation. Soft tissues: Unremarkable. Vasculature: Unremarkable. No abdominal aortic aneurysm. Lymph nodes: Unremarkable. No enlarged lymph nodes. Other findings: Status posterior fusion from L4-S1 with an intervertebral disc spacer at L5-S1. IMPRESSION: Mild wall thickening of the gallbladder with pericholecystic fluid. Findings are concerning for acute cholecystitis. Further evaluation with right upper quadrant ultrasound can be considered as warranted. Electronically signed by: Danny King MD 11/03/22 01:10 AM MDM Narrative Prior records/ancillary studies reviewed. Triage Nursing notes reviewed. Additional history obtained from family. The patient's history was concerning for abdominal pain. Differential diagnosis: Etiologies such as appendicitis, diverticulitis, PUD, biliary pathology, UTI, pancreatitis, obstruction, mesenteric ischemia, aortic pathology, infections, inflammatory bowel disease, renal colic, as well as others were entertained. Physical examination findings: As above. ER treatment provided: An order was placed for continuous cardiac monitoring. The monitor shows a rate of 60-100 with a sinus rhythm per my Independent interpretation. Zofran, morphine and Pepcid were ordered On reassessment the patient felt better. Diagnostics interpreted by me: ECG: Ordered for upper abdominal EKG: Normal sinus, normal intervals, no acute ST-T wave changes. Impression normal sinus rhythm independent interpreted by myself I think arrhythmia is unlikely. EKG shows normal sinus rhythm with no interval abnormalities such as QT prolongation or WPW. There are no findings to suggest Brugada syndrome. Cardiac monitoring in the emergency department reveals no tachycardic or bradycardic dysrhythmia. Hypertrophic cardiomyopathy was con sidered but there are no clear historical elements pointing toward this. EKG is not suggestive. The QRS voltage is not extremely large and there are no suggestive Q waves. The labs Independently Interpreted by myself revealed mild leukocytosis, mild LFT elevation. Negative troponin. Imaging studies: Ultrasound and CT abdomen/pelvis were reviewed and evaluated by myself concerning for possible acute cholecystitis versus biliary colic. Radiology read reports as above and this was reviewed. HEART SCORE: Hx: high/mod/low suspicion: 0 ECG: ST depression/nonspecific changes/normal: 0 Age: Greater than 65/45-64/less than 45: 1 Risk factors: (Hypertension, hyperlipidemia, diabetes, coronary disease, tobacco use, cocaine use): 1 Troponin: Greater than 2 times normal limits/1-2 times normal limits/normal: 0 Total: 2 Consultation: A consultation was placed with the surgeon Dr. Lowe. The case was discussed and diagnostics were reviewed. He recommends HIDA scan and admission to m edicine Medicine is consulted and the case is discussed. Patient will be admitted to the medical service. Exam and history seem consistent with biliary colic with concerns for acute cholecystitis. Medicine and surgery were consulted. Patient was started on antibiotics. Labs and diagnostics were independently interpreted by myself. Patient required a few rounds of pain medication. Patient is agreeable treatment plan of admission. Patient was admitted to the medical service with surgery consulted. By the evaluation outlined above emergent etiologies such as appendicitis, diverticulitis, PUD, UTI, pancreatitis, obstruction, mesenteric ischemia, aortic pathology, inflammatory bowel disease, renal colic, as well as others were deemed relatively unlikely. The pt informed about the findings as listed above. All questions were answered and pleased with the treatment. The chart was completed utilizing [email or web address] Speech voice recognition software. Grammatical errors, random word insertions, pronoun errors, and incomplete sentences are an occassional consequence of this system due to software limitations, ambient noise, and hardware issues. Any formal questions or concer ns about the content, text, or information contained within the body of this dictation should be directly addressed to the physician assistant store manager trainee for clarification. Impression & Plan Biliary colic, Abdominal pain, acute Discharge Plan Visit Data Chief Complaint: Abdominal Pain Stated Complaint: ABDOMINAL PAIN, VOMITING ED Provider: Layo Dailey ED Midlevel Provider: Manju King Discharge Problem: Biliary colic, Abdominal pain, acute Patient Disposition: Admitted As Inpatient Condition: Good Forms Stand Alone Forms: [facility] [employer] Prescriptions Prescriptions: No Action cyanocobalamin (vitamin B-12) [Vitamin B-12] 1,000 mcg Tablet 1,000 mcg PO QAM duloxetine [Cymbalta] 60 mg Capsule,Delayed Release(Dr/Ec) 60 mg PO HS omeprazole magnesium 20 mg Capsule,Delayed Release(Dr/Ec) 20 mg PO QAM meloxicam 15 mg tablet 15 mg PO HS gabapentin 600 mg tablet 600 mg PO HS cyclobenzaprine 10 mg tablet 10 mg PO HS PRN (Reason: Muscle Spasm) gabapentin 400 mg capsule 400 mg PO QAM Saxenda 3 mg/0.5 mL (18 mg/3 mL) pen injector 2.4 mg SUBCUT QAM Referrals Referrals: Sage Singh MD [Primary Care Provider] -
[2022-11-02 22:14] LABS: Albumin Globulin Ratio 1.3 (0.9-2); Albumin Level 4.3 gm/dl (3.4-5.0); BUN Creatinine Ratio 20.2 (10-20); Bilirubin,Total 0.8 mg/dl (0.2-1.0); Calcium 9.9 mg/dl (8.6-10.3); Creatinine Clr Calc Pharmacy 80.3 ml/min; Est GFR (African American) 79.7 ml/min; Est GFR (Non-African American) 68.8 ml/min; Globulin 3.3 gm/dl (2.5-4.0); Potassium 3.6 mmol/L (3.5-5.1); Total Protein 7.6 gm/dl (6.0-8.3)
[2022-11-02 22:20] LABS: Troponin I High Sensitivity 4.2 pg/ml (0-14)
[2022-11-02 22:25] LABS: Basophils % (auto) 0.8 %; Eosinophils # (auto) 0.12 K/uL (0-0.50); Hematocrit (blood only) 35.9 % (37.0-47.0); Hemoglobin 12.4 g/dl (12.0-16.0); Immature Granulocytes # (auto) 0.06 K/uL (0.01-0.20); Immature Granulocytes % (auto) 0.5 %; Lymphocytes # (auto) 2.93 K/uL (1.2-3.4); Lymphocytes % (auto) 23.8 %; Mean Corpuscular Hemoglobin 29.9 pg (25.0-34.0); Mean Corpuscular Hgb Conc 34.5 g/dL (32.0-36.0); Mean Corpuscular Volume 86.5 fL (80.0-100.0); Mean Platelet Volume 12.1 fL (9.4-12.4); Monocytes # (auto) 0.56 K/uL (0.11-0.59); Monocytes % (auto) 4.5 %; Neutrophils # (auto) 8.54 K/uL (1.40-6.50); Neutrophils % (auto) 69.4 %; Platelet Count 216 K/uL (130-400); RDW Coefficient of Variation 14.1 % (11.5-14.5); RDW Standard Deviation 44.8 fL (36.4-46.3); Red Blood Count 4.15 M/uL (4.20-5.40); White Blood Count 12.31 K/ul (4.8-10.8)
--- NOTE | 2022-11-03 00:08 | Ultrasound Report ---
Exam(s): US GALLBLADDER EXAM: US Abdomen Limited, Gallbladder CLINICAL HISTORY: Reason for exam: ruq pain. TECHNIQUE: Real-time ultrasound of the right upper quadrant with image documentation. COMPARISON: Dated 04/10/15 FINDINGS: Gallbladder: The gallbladder is partially collapsed with adenomyomatosis. There is sludge versus small stones. Common bile duct: Unremarkable as visualized. No stones. No dilation. Pancreas: Unremarkable as visualized. Right kidney: The right kidney measures 12.1 cm. IMPRESSION: Adenomyomatosis of the underdistended gallbladder without signs of cholecystitis. Possible small stones. No evidence for choledocholithiasis. Electronically signed by: Danny King MD 11/03/22 00:07 AM
[2022-11-03] MEDS ORDERED: OPTIRAY 350 100ml IV ONE (00:32)
--- NOTE | 2022-11-03 01:11 | CT Scan Report ---
Exam(s): CT ABDOMEN + PELVIS With Contrast EXAM: CT Abdomen and Pelvis With Intravenous Contrast CLINICAL HISTORY: Reason for exam: mid abd pain. TECHNIQUE: Axial computed tomography images of the abdomen and pelvis with intravenous contrast. CTDI is 26.65 mGy and DLP is 1348.89 mGy-cm. Automated exposure control was utilized for the study. A dose lowering technique was utilized adhering to the principles of ALARA. CONTRAST: Contrast must be dictated COMPARISON: Dated 04/10/15 FINDINGS: Lung bases: Unremarkable. No mass. No consolidation. ABDOMEN: Liver: Unremarkable. No mass. Gallbladder and bile ducts: Mild wall thickening of the gallbladder with some pericholecystic stranding. No ductal dilation. Pancreas: Unremarkable. No mass. No ductal dilation. Spleen: Unremarkable. No splenomegaly. Adrenals: Unremarkable. No mass. Kidneys and ureters: Unremarkable. No solid mass. No hydronephrosis. Stomach and bowel: Unremarkable. No obstruction. No mucosal thickening. PELVIS: Appendix: No findings to suggest acute appendicitis. Bladder: Unremarkable. No mass. Reproductive: Unremarkable as visualized. ABDOMEN and PELVIS: Intraperitoneal space: Unremarkable. No free air. No significant fluid collection. Bones/joints: No acute fracture. No dislocation. Soft tissues: Unremarkable. Vasculature: Unremarkable. No abdominal aortic aneurysm. Lymph nodes: Unremarkable. No enlarged lymph nodes. Other findings: Status posterior fusion from L4-S1 with an intervertebral disc spacer at L5-S1. IMPRESSION: Mild wall thickening of the gallbladder with pericholecystic fluid. Findings are concerning for acute cholecystitis. Further evaluation with right upper quadrant ultrasound can be considered as warranted. Electronically signed by: Danny King MD 11/03/22 01:10 AM
[2022-11-03] MEDS ORDERED: PIPERACILLIN/TAZOBACTAM 4.5 GM/120 ML BAG IV ONE (01:28)
[2022-11-03] MEDS ORDERED: GI COCKTAIL ED USE PO ONE (01:42)
[2022-11-03] MEDS ORDERED: MoRPHine SULFATE 4 MG/ML 1 ML CARP\\VIAL IV STA (02:10)
[2022-11-03] MEDS ORDERED: ACETAMINOPHEN 325 MG TAB PO PRN (04:32)
[2022-11-03] MEDS ORDERED: ONDANSETRON INJ 2 MG/ML 2 ML VIAL IV PRN ×2 (04:32→09:02)
[2022-11-03] MEDS ORDERED: MoRPHine SULFATE 4 MG/ML 1 ML CARP\\VIAL IV PRN (04:32)
--- NOTE | 2022-11-03 04:33 | History and Physical Report ---
DATE OF ADMISSION: 11/02/2022. CHIEF COMPLAINT: Abdominal pain. HISTORY OF PRESENT ILLNESS: A 52-year-old female with past medical history significant for morbid obesity, she is getting evaluated for gastric bypass surgery and workup for gastric bypass surgery showed gallstones, history of GERD, vitamin D deficiency, fibromyalgia, depression, presents with abdominal pain in the right side. The patient says yesterday at 2:00 p.m., she noticed back pain, but then later in evening after eating pork for dinner, she has severe epigastric and right upper quadrant pain radiating to the back and lower chest, associated with nausea, vomiting.Pain was 10/10 in severity, which prompted her to come to the ER. Currently pain is under control now. Denies any fever or chills. No diarrhea or constipation. No blood in stool or black stool. Normal bladder movements. No fevers, no shortness of breath, no headache, no blurred visions, no earache, no runny nose, no sore throat. No cough. Currently, resting comfortably and hemodynamically stable. ALLERGIES: TO CODEINE, HYDROCODONE, OXYCODONE. PAST MEDICAL HISTORY: As mentioned above. PAST SURGICAL HISTORY: Breast reduction surgery, colonoscopy, EGDs, hysteroscopy, injection of lumbosacral joint, ligation of oviducts, lumbar hemilaminectomy, repair of nasal septum, total abdominal hysterectomy with removal of tubes. MEDICATIONS: The patient is on vitamin B12 1000 mcg p.o. a.m., cyclobenzaprine 10 mg p.o. at bedtime p.r.n., Cymbalta 60 mg p.o. at bedtime, gabapentin 600 mg p.o. at bedtime, gabapentin 400 mg p.o. a.m., Liraglutide 2.4 mg subcutaneous a.m., meloxicam 15 mg p.o. at bedtime, omeprazole 20 mg p.o. daily. FAMILY HISTORY: No significant family history. SOCIAL HISTORY: . Quit smoking in November 2021. Smoked 1 pack a day for 32 years. No alcohol use. No drug use. REVIEW OF SYSTEMS: As per HPI. Rest of the review of systems is negative. PHYSICAL EXAMINATION: GENERAL: The patient is obese, not in acute distress. VITAL SIGNS: Temperature 36.6, pulse 73, respiratory rate 18, blood pressure 113/68, oxygen 95% on room air. HEENT: Pupils equal, round and reactive to light. Oral mucosa moist. NECK: No JVD, no neck masses. CARDIOVASCULAR: S1 and S2 heard. Regular rate and rhythm. No murmur, no gallop. RESPIRATORY SYSTEM: Normal AP diameter. No accessory muscle use. No wheezing, no crackles. ABDOMEN: Soft, bowel sounds present. Mild discomfort in the right upper quadrant region and epigastric region. No guarding, no rigidity, no distention. CENTRAL NERVOUS SYSTEM: Alert and oriented. Speech is clear. No facial droop. Insight is okay. Obeys simple commands. Moves extremities. EXTREMITIES: No edema, no erythema. LABORATORY DATA: WBC 12.3, hemoglobin 12.4, hematocrit 35.9, platelets 216. Sodium 139, potassium 3.6, chloride 103, CO2 of 27, BUN 19, creatinine 0.9, serum glucose 111, calcium 9.9, total bilirubin 0.8, AST 42, ALT 32, alkaline phosphatase 126. Troponin I high sensitivity 4.5. Lipase 66. Urinalysis negative. SARS-CoV-2 rapid test negative. IMAGING DATA: CT abdomen and pelvis with IV contrast shows mild wall thickening of the gallbladder with pericholecystic fluid. Findings are concerning for acute cholecystitis. Gallbladder ultrasound shows adenomyomatosis of the neck under distended gallbladder without signs of cholecystitis, possible small stones. No evidence of choledocholithiasis. ASSESSMENT AND PLAN: This is a 52-year-old female presents with abdominal pain, found to have possible cholecystitis. 1. Abdominal pain, right upper quadrant pain, possible cholecystitis on the CAT but gallbladder ultrasound showed some gallstones, but no signs of cholecystitis. ER notified surgery and recommended HIDA scan. Received Zosyn in the ER. We will follow the HIDA scan. Continue IV Zosyn, IV antiemetics, IV pain medications, IV fluids, n.p.o. Monitor in the medical floor. 2. History of depression. Continue home duloxetine. 3. Morbid obesity. She is under a plan for gastric bypass surgery. 4. Deep venous thrombosis prophylaxis. SCDs for now. DISPOSITION: Admit to medical floor. Expect to discharge home and followup with family doctor. Job ID: [id number] [facility]
[2022-11-03] MEDS: SODIUM CHLORIDE 0.9% 1000ML 1,000 ML IV SCH ×2 (05:05→11:19)
[2022-11-03 07:43] LABS: Basophils # (auto) 0.05 K/uL (0-0.2); Basophils % (auto) 0.9 %; Eosinophils # (auto) 0.06 K/uL (0-0.50); Eosinophils % (auto) 1.1 %; Hematocrit (blood only) 32.5 % (37.0-47.0); Hemoglobin 10.9 g/dl (12.0-16.0); Immature Granulocytes # (auto) 0.01 K/uL (0.01-0.20); Immature Granulocytes % (auto) 0.2 %; Lymphocytes # (auto) 2.02 K/uL (1.2-3.4); Lymphocytes % (auto) 37.2 %; Mean Corpuscular Hemoglobin 29.5 pg (25.0-34.0); Mean Corpuscular Hgb Conc 33.5 g/dL (32.0-36.0); Mean Corpuscular Volume 88.1 fL (80.0-100.0); Mean Platelet Volume 11.6 fL (9.4-12.4); Monocytes # (auto) 0.48 K/uL (0.11-0.59); Monocytes % (auto) 8.8 %; Neutrophils # (auto) 2.81 K/uL (1.40-6.50); Neutrophils % (auto) 51.8 %; Platelet Count 179 K/uL (130-400); RDW Coefficient of Variation 14.2 % (11.5-14.5); RDW Standard Deviation 45.9 fL (36.4-46.3); Red Blood Count 3.69 M/uL (4.20-5.40); White Blood Count 5.43 K/ul (4.8-10.8)
[2022-11-03 07:49] LABS: BUN Creatinine Ratio 17.8 (10-20); Calcium 8.4 mg/dl (8.6-10.3); Creatinine Clr Calc Pharmacy 83.3 ml/min; Est GFR (Non-African American) 72.5 ml/min; Magnesium 2.1 mg/dl (1.7-2.4); Potassium 3.9 mmol/L (3.5-5.1)
[2022-11-03] MEDS ORDERED: BUPIVACAINE/EPINEPHRINE 0.5% MPF 1:200,000 30 ML VIAL ONE (07:57)
[2022-11-03] MEDS ORDERED: PIPERACILLIN/TAZOBACTAM 3.375 GM in DEXTROSE 5% 100 ML IV SCH (08:00)
--- NOTE | 2022-11-03 08:08 | Surgery Consultation ---
Date of Consultation November 03, 2022 Assessment & Plan (1) Abdominal pain, acute: (2) Biliary colic: Plan 52-year-old female with right upper quadrant pain, tender with palpation- CT scan concerning for possible acute cholecystitis. GB ultrasound showing Adenomyomatosis of the underdistended gallbladder without signs of cholecystitis. Possible small stones. No evidence for choledocholithiasis. Patient would prefer to have gallbladder out during this hospital stay as she believes she has been dealing with gallbladder issues for quite some time now. Case discussed with Dr. Lowe who recommends Laparoscopic Cholecystectomy in OR today. Patient has been NPO with nausea and vomiting since yesterday early evening. IV Zosyn ordered by primary team. Patient seen. Clinically consistent with cholecystitis. CT scan with gallbladder wall thickening and pericholecystic fluid. Discussed options and risks which include bleeding infection bile leaks or injury to bile ducts or other organs DVT PE [place] CVA etc. Following our discussion I answered her questions. We will proceed this morning with laparoscopic cholecystectomy. History of Present Illness Reason for Consultation: Right Upper Quadrant Pain Attending Physician: Jessica Willoughby, History of Present Illness 52-year-old female who presented to [facility] ED yesterday evening due to severe right upper quadrant pain. She states that she had some abdominal pain throughout the day yesterday, but notes that the pain became severe after eating pulled pork at her son's house yesterday around 5:30PM. She states that she became nauseous and had several episodes of vomiting prior to coming to the ED. She was aware, due to previous abdominal imaging, that she had gallstones. While in the ED, CT scan of the abdomen was performed which showed possible acute cholecystitis with gallbladder wall thickening with pericholecystic fluid. Ultrasound of the gallbladder showed Adenomyomatosis of the underdistended gallbladder without signs of cholecystitis. Possible small stones. No evidence for choledocholithiasis. WBC on admission slightly elevated at 12.31. Total Bili 0.8; AST 42, ALT 32, Alk Phos 126. Raquel was admitted by hospitalist team for evaluation. Currently, Raquel reports that her pain is slightly improved this morning. She is planning on having gastric bypass surgery sometime this summer. Allergies Allergy/AdvReac Type Severity Reaction Status Date / Time codeine Allergy Intermediate GI Verified 11/02/22 21:50 SYMPTOMS VOMITING, RASH hydrocodone Allergy Intermediate ITCHING Verified 11/02/22 21:50 with severe vomiting oxycodone Allergy Intermediate severe Verified 11/02/22 21:50 vomiting and itching Home Medications Medication Instructions Recorded Confirmed Type cyanocobalamin (vitamin B-12) 1,000 mcg PO QAM 10/03/20 11/02/22 History 1,000 mcg tablet (Vitamin B-12) duloxetine 60 mg capsule,delayed 60 mg PO HS 10/03/20 11/02/22 History release (Cymbalta) omeprazole magnesium 20 mg 20 mg PO QAM 10/06/20 11/02/22 History capsule,delayed release cyclobenzaprine 10 mg tablet 10 mg PO HS PRN Muscle Spasm 11/02/22 11/02/22 History gabapentin 400 mg capsule 400 mg PO QAM 11/02/22 11/02/22 History gabapentin 600 mg tablet 600 mg PO HS 11/02/22 11/02/22 History liraglutide (weight loss) 3 mg/0.5 2.4 mg subcut QAM 11/02/22 11/02/22 History mL (18 mg/3 mL) subcut pen injector (Saxenda) meloxicam 15 mg tablet 15 mg PO HS 11/02/22 11/02/22 History Patient History Medical History (Updated 11/03/22 @ 08:20 by Jessica Willoughby DO) Ankle fracture, right Anxiety GERD (gastroesophageal reflux disease) Low back pain Obesity Surgical History History of lumbar spinal fusion Hx of hand surgery left middle finger cyst removed S/P hysterectomy Social History Smoking Status: Former smoker Tobacco Type: Cigarettes Cigarettes Per Day: 1 pack/day; Smoking End Date: November 08, 2021; Second Hand Exposure: No; Do You Dip or Chew Tobacco: No; Hx Alcohol Use: No Hx Substance Use: No Preferred Language: Iranian Communication Ability: Effective Honey Producer Required: No Beliefs That Will Affect Care: None Current Living Situation: Spouse Current Living Situation Comment: Lives at home with Other Information That Helps Us Care for You: No Feels Safe at Home: Yes Safety Concerns: Feels Safe At This Time Assistive Devices: Contacts, Glasses and Walker Review of Systems Constitutional: no fever and no chills Gastrointestinal: as per Subjective / HPI, + abdominal pain, + nausea and + vomiting Physical Exam Constitutional: WD/WN, vitals as above Respiratory: normal respiratory effort; no respiratory distress and no labored breathing Cardiovascular: RRR, no murmur, no edema Gastrointestinal (Abdomen): tender with palpation to right upper quadrant. Skin: no rashes, warm and dry Psychiatric: A+Ox3, euthymic affect Results & Data Vital Signs (Past 12 Hours) Vital Signs Temp Pulse Pulse Resp BP BP Pulse Ox 11/03/22 07:04 36.6 C 62 18 123/77 95 11/03/22 04:21 37.0 C 74 16 134/82 98 11/03/22 04:09 76 20 119/60 96 11/03/22 02:27 73 11/03/22 02:09 77 18 113/68 95 11/03/22 00:48 80 20 123/70 97 11/02/22 22:30 78 11/02/22 22:03 86 20 100 11/02/22 20:52 36.6 C 87 18 115/71 97 O2 Del Method 11/03/22 07:04 Room Air 11/03/22 04:21 Room Air 11/03/22 04:09 Room Air 11/03/22 02:27 11/03/22 02:09 Room Air 11/03/22 00:48 Room Air 11/02/22 22:30 11/02/22 22:03 Room Air 11/02/22 20:52 Room Air PG Care Time/CCT Total # of Minutes Spent Total Time Spent with Patient: Total time spent is greater than 50% in coordination of care (as documented) at patient's floor/unit and/or counseling patient: Coding Level of Care Code 12993 IN/OBS CONSULT LVL 2,35M Diagnoses Abdominal pain, acute R10.9 Biliary colic K80.50
[2022-11-03 08:11] LABS: INR 1.1 (0.9-1.1); Partial Thromboplastin Ratio 1.1; Prothrombin Time 11.2 Seconds (9.0-12.0)
--- NOTE | 2022-11-03 08:19 | Anesthesiology Consultation ---
Date of Service November 03, 2022 Assessment & Plan Chart Review Chart Review: Acceptable Risk for Surgery History Surgery Operation Date: 11/03/22 08:00 Proposed Procedures p Laparoscopic Cholecystectomy - Jesus Lowe DO Height/Weight Height: 5 ft 4 in Weight: 102.6 kg Allergies Allergy/AdvReac Type Severity Reaction Status Date / Time codeine Allergy Intermediate GI Verified 11/02/22 21:50 SYMPTOMS VOMITING, RASH hydrocodone Allergy Intermediate ITCHING Verified 11/02/22 21:50 with severe vomiting oxycodone Allergy Intermediate severe Verified 11/02/22 21:50 vomiting and itching Medications Home Medications Medication Instructions Recorded Confirmed Last Taken cyanocobalamin (vitamin B-12) 1,000 mcg PO QAM 10/03/20 11/02/22 11/02/22 1,000 mcg tablet (Vitamin B-12) duloxetine 60 mg capsule,delayed 60 mg PO HS 10/03/20 11/02/22 11/01/22 release (Cymbalta) omeprazole magnesium 20 mg 20 mg PO QAM 10/06/20 11/02/22 11/02/22 capsule,delayed release cyclobenzaprine 10 mg tablet 10 mg PO HS PRN Muscle Spasm 11/02/22 11/02/22 Unknown gabapentin 400 mg capsule 400 mg PO QAM 11/02/22 11/02/22 11/02/22 gabapentin 600 mg tablet 600 mg PO HS 11/02/22 11/02/22 11/01/22 liraglutide (weight loss) 3 mg/0.5 2.4 mg subcut QAM 11/02/22 11/02/22 11/02/22 mL (18 mg/3 mL) subcut pen injector (Saxenda) meloxicam 15 mg tablet 15 mg PO HS 11/02/22 11/02/22 11/01/22 Active Medications Generic Name Dose Route Start Last Admin Trade Name Freq PRN Reason Stop Dose Admin Cyanocobalamin 1,000 mcg 11/03/22 09:00 11/03/22 07:52 Cyanocobalamin (B-12) 500 Mcg Tablet PO 12/03/22 08:59 1,000 mcg QAM YURIDIA Administration Gabapentin 400 mg 11/03/22 09:00 11/03/22 07:52 Gabapentin 400 Mg Cap PO 12/03/22 08:59 400 mg QAM YURIDIA Administration Sodium Chloride 1,000 mls @ 125 mls/hr 11/03/22 04:32 11/03/22 05:05 Nss 1000ml IV 12/03/22 04:31 125 mls/hr .Q8H YURIDIA Administration Piperacillin Sod/Tazobactam 115 mls @ 28.75 mls/hr 11/03/22 08:00 11/03/22 07:59 Sod 3.375 gm/ Dextrose IV 11/13/22 07:59 28.8 mls/hr Q8H YURIDIA Administration Protocol Pantoprazole Sodium 40 mg 11/03/22 09:00 11/03/22 07:52 Pantoprazole 40 Mg Tab PO 12/03/22 08:59 40 mg QAM YURIDIA Administration Past Medical History Medical History (Updated 11/03/22 @ 08:19 by Javier Alexis MD) Ankle fracture, right Anxiety GERD (gastroesophageal reflux disease) Low back pain Obesity Past Surgical History Surgical History History of lumbar spinal fusion Hx of hand surgery left middle finger cyst removed S/P hysterectomy Social History Smoking Status: Former smoker tobacco type: cigarettes Smoking cigarettes per day: 1 pack/day Do You Dip or Chew Tobacco: No Smoking End Date: November 08, 2021 Hx Alcohol Use: No Hx Substance Use: No substance use type: does not use Physical Exam Vital Signs Last Vital Signs Temp 36.6 C 11/03/22 07:04 Pulse 62 11/03/22 07:04 Resp 18 11/03/22 07:04 BP 123/77 11/03/22 07:04 Pulse Ox 95 11/03/22 07:04 O2 Del Method Room Air 11/03/22 07:04 Testing Laboratory Results 11/03/22 07:06 11/03/22 07:06 PT 11.2 Seconds (9.0-12.0) 11/03/22 07:06 INR 1.1 (0.9-1.1) 11/03/22 07:06 APTT 30.0 Seconds (21.0-31.0) 11/03/22 07:06 Urine Color Yellow 11/02/22 21:51 Urine Appearance Clear (Clear) 11/02/22 21:51 Urine pH 8.5 (4.5-7.5) H 11/02/22 21:51 Ur Specific [place] 1.010 (1.000-1.030) 11/02/22 21:51 Urine Protein Negative (Negative) 11/02/22 21:51 Urine Glucose (UA) Negative (Negative) 11/02/22 21:51 Urine Ketones Trace (Negative) H 11/02/22 21:51 Urine Nitrite Negative (Negative) 11/02/22 21:51 Ur Leukocyte Esterase Negative (Negative) 11/02/22 21:51 Electrocardiogram Date: 12/02/22 Findings: + NSR @ (60)
--- NOTE | 2022-11-03 08:20 | Hospitalist Progress Note ---
Date of Service November 03, 2022 Assessment & Plan (1) Acute cholecystitis: Plan: Zosyn, s/p lap afshin. If ok with PO intake by this afternoon she can return home per surgery. (2) Obesity: Plan: lifestyle changes recommended. (3) GERD (gastroesophageal reflux disease): Plan: chronic, stable. Cont current therapy. (4) Anxiety: Plan: chronic, stable. Cont current therapy. SCDs Full Dispo-to home this afternoon. Jessica Willoughby DO Admission and Anticipated Discharge Date Admission Date: November 03, 2022 Subjective 52 yo F admitted with abdominal pain 2/2 acutee choleecystitis s/p lap afshin tolerating PO doing well Physical Exam Physical Exam: CONSTITUTIONAL: WNWD, vitals as above, generally well-appearing, NAD EYES: normal conjunctivae, no scleral icterus ENT: external ear and nose normal, MMM NECK: trachea midline RESPIRATORY: clear to auscultation bilaterally, no crackles, rales or wheezes, normal respiratory effort CARDIOVASCULAR: regular rate and rhythm, S1 and 2 heard without murmurs, gallops or rubs, no JVD, no peripheral edema CHEST: inspection of chest was normal GASTROINTESTINAL: soft, nontender, ND, no guarding, +small lap sites healing well MUSCULOSKELETAL: strength 5/5 throughout, head is normocephalic and atraumatic SKIN: warm and dry NEUROLOGIC: CN 2-12 grossly intact, no sensory deficit, normal cognition, normal speech, no tremor PSYCHIATRIC: alert cooperative and oriented to person, place and time. Results & Data Results & Data Vital Signs (Past 12 Hours) Vital Signs Temp Pulse Pulse Resp BP BP Pulse Ox 11/03/22 07:04 36.6 C 62 18 123/77 95 11/03/22 04:21 37.0 C 74 16 134/82 98 11/03/22 04:09 76 20 119/60 96 11/03/22 02:27 73 11/03/22 02:09 77 18 113/68 95 11/03/22 00:48 80 20 123/70 97 11/02/22 22:30 78 11/02/22 22:03 86 20 100 11/02/22 20:52 36.6 C 87 18 115/71 97 O2 Del Method 11/03/22 07:04 Room Air 11/03/22 04:21 Room Air 11/03/22 04:09 Room Air 11/03/22 02:27 11/03/22 02:09 Room Air 11/03/22 00:48 Room Air 11/02/22 22:30 11/02/22 22:03 Room Air 11/02/22 20:52 Room Air Laboratory Results Short CBC 11/02/22 11/03/22 Range/Units 21:07 07:06 WBC 12.31 H 5.43 (4.8-10.8) K/ul Hgb 12.4 10.9 L (12.0-16.0) g/dl Hct 35.9 L 32.5 L (37.0-47.0) % Plt Count 216 179 (130-400) K/uL BMP 11/02/22 11/03/22 21:07 07:06 Sodium 139 143 Potassium 3.6 3.9 Chloride 103 111 H Carbon Dioxide 27 26 BUN 19 16 Creatinine 0.94 0.90 Glucose 111 H 100 H Calcium 9.9 8.4 L Liver Function 11/02/22 Range/Units 21:07 Total Bilirubin 0.8 (0.2-1.0) mg/dl AST 42 H (13-39) U/L ALT 32 (7-52) U/L Alkaline Phosphatase 126 H (34-104) U/L Albumin 4.3 (3.4-5.0) gm/dl Urine 11/02/22 Range/Units 21:51 Urine Color Yellow Urine Appearance Clear (Clear) Urine pH 8.5 H (4.5-7.5) Ur Specific [place] 1.010 (1.000-1.030) Urine Protein Negative (Negative) Urine Glucose (UA) Negative (Negative) Diagnostic Findings Gallbladder Ultrasound 11/02/22 21:45 Exam(s): US GALLBLADDER EXAM: US Abdomen Limited, Gallbladder CLINICAL HISTORY: Reason for exam: ruq pain. TECHNIQUE: Real-time ultrasound of the right upper quadrant with image documentation. COMPARISON: Dated 04/10/15 FINDINGS: Gallbladder: The gallbladder is partially collapsed with adenomyomatosis. There is sludge versus small stones. Common bile duct: Unremarkable as visualized. No stones. No dilation. Pancreas: Unremarkable as visualized. Right kidney: The right kidney measures 12.1 cm. IMPRESSION: Adenomyomatosis of the underdistended gallbladder without signs of cholecystitis. Possible small stones. No evidence for choledocholithiasis. Electronically signed by: Danny King MD 11/03/22 00:07 AM Abdomen/Pelvis CT 11/02/22 23:17 Exam(s): CT ABDOMEN + PELVIS With Contrast EXAM: CT Abdomen and Pelvis With Intravenous Contrast CLINICAL HISTORY: Reason for exam: mid abd pain. TECHNIQUE: Axial computed tomography images of the abdomen and pelvis with intravenous contrast. CTDI is 26.65 mGy and DLP is 1348.89 mGy-cm. Automated exposure control was utilized for the study. A dose lowering technique was utilized adhering to the principles of ALARA. CONTRAST: Contrast must be dictated COMPARISON: Dated 04/10/15 FINDINGS: Lung bases: Unremarkable. No mass. No consolidation. ABDOMEN: Liver: Unremarkable. No mass. Gallbladder and bile ducts: Mild wall thickening of the gallbladder with some pericholecystic stranding. No ductal dilation. Pancreas: Unremarkable. No mass. No ductal dilation. Spleen: Unremarkable. No splenomegaly. Adrenals: Unremarkable. No mass. Kidneys and ureters: Unremarkable. No solid mass. No hydronephrosis. Stomach and bowel: Unremarkable. No obstruction. No mucosal thickening. PELVIS: Appendix: No findings to suggest acute appendicitis. Bladder: Unremarkable. No mass. Reproductive: Unremarkable as visualized. ABDOMEN and PELVIS: Intraperitoneal space: Unremarkable. No free air. No significant fluid collection. Bones/joints: No acute fracture. No dislocation. Soft tissues: Unremarkable. Vasculature: Unremarkable. No abdominal aortic aneurysm. Lymph nodes: Unremarkable. No enlarged lymph nodes. Other findings: Status posterior fusion from L4-S1 with an intervertebral disc spacer at L5-S1. IMPRESSION: Mild wall thickening of the gallbladder with pericholecystic fluid. Findings are concerning for acute cholecystitis. Further evaluation with right upper quadrant ultrasound can be considered as warranted. Electronically signed by: Danny King MD 11/03/22 01:10 AM Medications Administered Current Inpatient Medications Acetaminophen (Acetaminophen 325 Mg Tab) 650 mg PO Q4H PRN PRN Reason: pain/fever Stop: 12/03/22 04:31 Cyanocobalamin (Cyanocobalamin (B-12) 500 Mcg Tablet) 1,000 mcg PO QAM [facility] Stop: 12/03/22 08:59 Last Admin: 11/03/22 07:52 Dose: 1,000 mcg Duloxetine HCl (Duloxetine Hcl 60 Mg Cap) 60 mg PO HS YURIDIA Stop: 12/03/22 20:59 Gabapentin (Gabapentin 600 Mg Tab) 600 mg PO HS YURIDIA Stop: 12/03/22 20:59 Gabapentin (Gabapentin 400 Mg Cap) 400 mg PO QAM [facility] Stop: 12/03/22 08:59 Last Admin: 11/03/22 07:52 Dose: 400 mg Sodium Chloride (Nss 1000ml) 1,000 mls @ 125 mls/hr IV .Q8H YURIDIA Stop: 12/03/22 04:31 Last Admin: 11/03/22 05:05 Dose: 125 mls/hr Piperacillin Sod/Tazobactam (Sod 3.375 gm/ Dextrose) 115 mls @ 28.75 mls/hr IV Q8H YURIDIA; Protocol Stop: 11/13/22 07:59 Last Admin: 11/03/22 07:59 Dose: 28.8 mls/hr Morphine Sulfate (Morphine Sulfate 4 Mg/Ml 1 Ml Carp\Vial) 3 mg IV Q3H PRN PRN Reason: Pain Stop: 11/17/22 04:31 Ondansetron HCl (Ondansetron Inj 2 Mg/Ml 2 Ml Vial) 4 mg IV Q6H PRN PRN Reason: Nausea Stop: 12/03/22 04:31 Pantoprazole Sodium (Pantoprazole 40 Mg Tab) 40 mg PO QAM [facility] Stop: 12/03/22 08:59 Last Admin: 11/03/22 07:52 Dose: 40 mg
--- NOTE | 2022-11-03 08:41 | Electrocardiogram Report ---
Test Reason : Blood Pressure : / mmHG Vent. Rate : 076 BPM Atrial Rate : 076 BPM P-R Int : 176 ms QRS Dur : 080 ms QT Int : 410 ms P-R-T Axes : 064 075 049 degrees QTc Int : 461 ms Poor data quality, interpretation may be adversely affected Normal sinus rhythm Normal ECG When compared with ECG of 03-OCT-2020 15:47, No significant change Confirmed by Micah Gonzalez ([id number]) on 11/03/2022 8:41:25 AM Referred By: REFERRED SELF Confirmed By:Micah Gonzalez
[2022-11-03] MEDS ORDERED: MIDAZOLAM HCL 1 MG/ML 2ML VIAL ONE (08:43)
[2022-11-03] MEDS ORDERED: LIDOCAINE 2% MPF LOCAL 5 ML VIAL ONE (08:44)
[2022-11-03] MEDS ORDERED: DEXAMETHASONE SOD INJ 4 MG/ML VIAL ONE (08:44)
[2022-11-03] MEDS ORDERED: PROPOFOL IV EMULSION 10 MG/ML 20 ML VIAL IV ONE (08:44)
[2022-11-03] MEDS ORDERED: ONDANSETRON INJ 2 MG/ML 2 ML VIAL ONE (08:44)
[2022-11-03] MEDS ORDERED: ROCURONIUM BROMIDE 10 MG/ML 5 ML VIAL IV ONE (08:44)
[2022-11-03] MEDS ORDERED: METOCLOPRAMIDE HCL INJ 5 MG/ML 2 ML VIAL ONE (08:44)
[2022-11-03] MEDS ORDERED: fentaNYL citrate PF 100 MCG/2 ML VIAL ONE ×2 (08:44→10:16)
[2022-11-03] MEDS ORDERED: SUGAMMADEX SODIUM 200 MG/2 ML VIAL IV ONE (08:45)
[2022-11-03] MEDS ORDERED: KETOROLAC 30 MG/ML VIAL ONE ×2 (08:45→10:05)
[2022-11-03] MEDS ORDERED: ACETAMINOPHEN 1000 MG/100 ML IV IV ONE (08:48)
[2022-11-03] MEDS ORDERED: SCOPOLAMINE 1 MG TDSY TD ONE (08:48)
[2022-11-03] MEDS ORDERED: FAMOTIDINE/PF 20 MG/2 ML VIAL IV ONE (08:48)
[2022-11-03] MEDS ORDERED: CYANOCOBALAMIN (B-12) 500 MCG TABLET PO SCH (09:00)
[2022-11-03] MEDS ORDERED: GABAPENTIN 400 MG CAP PO SCH (09:00)
[2022-11-03] MEDS ORDERED: PANTOprazole 40 MG TAB PO SCH (09:00)
[2022-11-03] MEDS ORDERED: ATROPINE SULFATE 0.1 MG/ML 10ML SYR IV PRN (09:02)
[2022-11-03] MEDS ORDERED: PROMETHAZINE HCL 6.25 MG in SODIUM CHLORIDE 0.9% 50 ML IV PRN (09:02)
[2022-11-03] MEDS ORDERED: KETOROLAC 30 MG/ML VIAL IV PRN (09:02)
[2022-11-03] MEDS ORDERED: ePHEDrine sulfate 50 MG/ML SYR ONE (09:36)
--- NOTE | 2022-11-03 10:02 | Operative Report ---
PG Post Operative Report Pre & Post Diagnosis Operation Date: 11/03/22 08:00 Pre-Op Diagnosis: cholecystitis Post-Op Diagnosis: cholecystitis I identified the patient and participated in the time-out.: Yes Procedure Operation Date: 11/03/22 08:00 Actual Procedures p Laparoscopic Cholecystectomy(Not Applicable) - Jesus Lowe DO Surgeon Jesus Lowe DO Abalone Sheller kori Dean Estimated Blood Loss 5 Findings Consistent with Post-Op Diagnosis Specimens gallbladder Description of Procedure After informed consent was obtained the patient was taken to the operating room and placed in the supine position. After successful intubation the abdomen was sterilely prepped and draped in usual fashion. A periumbilical incision was made with an 11 blade scalpel and carried down through the soft tissue using electrocautery. The anterior rectus fascia was opened using electrocautery and 2 #0 Vicryl stay sutures were placed. The peritoneum was elevated with hemostats and incised under direct vision using Metzenbaum scissors. A finger sweep was performed and a 12 mm Jacobo trocar was placed. The abdomen was insuf flated to 18 mmHg. The laparoscope was inserted and the abdomen was examined in 360. No gross abnormalities were identified. A subxiphoid 5 mm port and 2 right upper quadrant 5 mm ports were placed under direct vision. The patient was placed in a reverse Trendelenburg position and slightly airplaned to the left. The gallbladder was grasped and elevated superiorly and laterally. A [place] dissector was used to take down adhesions around the neck of the gallbladder. The cystic duct was identified and skeletonized. It was clipped twice proximally and once distally and transected using a laparoscopic scissor. In similar fashion the cystic artery was identified and skeletonized clipped and divided. The gallbladder was removed from the gallbladder fossa with electrocautery. It was placed into an Endo Catch bag. Thorough irrigation was performed. At the end of the procedure there was adequate hemostasis and no evidence of any bile leaks. A final look around the abdomen showed no other abnormalities. The gallbladder and trochars were all removed and the abdomen was desufflated. The fascia of the camera port was closed using 0 Vicryl in a [id number] fashion. All the wounds were irrigated and closed using 4-0 Monocryl. Marcaine was injected around them for postoperative analgesia and skin glue used as a dressing. The patient was awaken extubated and transferred to recovery in stable condition. My physician's video production assistant was present throughout the entire case... helped with prepping the patient. With exposure for trocar placement, as well as retracted the gallbladder throughout the case and also assisted with wound closure and dressing placement. I attest to the content of the Intraoperative Record and any orders documented therein. Any exceptions are noted below.
[2022-11-03] MEDS ORDERED: traMADol HCL 50 MG TABLET PO PRN (10:15)
[2022-11-03] MEDS: fentaNYL citrate PF 100 MCG/2 ML VIAL IV PRN ×3 (10:17→10:29)
--- NOTE | 2022-11-03 10:38 | Anesthesiology Progress Note ---
Date of Service November 03, 2022 Anesthesia Post Procedure Vital Signs Vital Signs: Temp Pulse Pulse Pulse Resp BP BP 11/03/22 10:30 80 12 153/84 H 11/03/22 10:20 82 15 125/87 11/03/22 10:10 36.1 C L 86 16 143/90 H 11/03/22 07:04 36.6 C 62 18 11/03/22 04:21 37.0 C 74 16 11/03/22 04:09 76 20 11/03/22 02:27 73 11/03/22 02:09 77 18 11/03/22 00:48 80 20 11/02/22 22:30 78 11/02/22 22:03 86 20 11/02/22 20:52 36.6 C 87 18 115/71 BP Pulse Ox O2 Del Method O2 Flow Rate 11/03/22 10:30 99 Oxymask 5 11/03/22 10:20 97 Oxymask 9 11/03/22 10:10 96 Oxymask 9 11/03/22 07:04 123/77 95 Room Air 11/03/22 04:21 134/82 98 Room Air 11/03/22 04:09 119/60 96 Room Air 11/03/22 02:27 11/03/22 02:09 113/68 95 Room Air 11/03/22 00:48 123/70 97 Room Air 11/02/22 22:30 11/02/22 22:03 100 Room Air 11/02/22 20:52 97 Room Air Pain Intensity Abdomen: Pain Intensity: 4 Transfer of Care Handoff Completed per policy Notes Mental Status: alert / awake / arousable Patient Amnestic to Procedure: Yes Nausea / Vomiting: adequately controlled Pain: adequately controlled Airway Patency, RR, SpO2: stable & adequate BP & HR: stable & adequate Hydration State: stable & adequate Anesthetic Complications: no major complications apparent
[2022-11-03] MEDS ORDERED: GABAPENTIN 600 MG TAB PO SCH (21:00)
[2022-11-03] MEDS ORDERED: DULoxetine HCL 60 MG CAP PO SCH (21:00)
--- NOTE | 2022-11-14 17:24 | Discharge Summary ---
Discharge Summary Date of Service November 03, 2022 Notes For Next Care Provider Medication Changes From Visit see [facility] rec Principal Dx & Hospital Course #1 = Principal Diagnosis (1) Acute cholecystitis: Received Zosyn this admission, Clinical picture consistent with acute cholecystitis including CT a/p. s/p lap afshin and tolerating PO prior to discharge with pain well controlled. Follow-up with general surgery for post operative evaluation in 1-2 weeks. All wound care and activity restrictions were reviewed with the patient who verbalized understanding with intent to co mply. Discharge Exam CONSTITUTIONAL: WNWD, vitals as above, generally well-appearing, NAD EYES: normal conjunctivae, no scleral icterus ENT: external ear and nose normal, MMM NECK: trachea midline RESPIRATORY: clear to auscultation bilaterally, no crackles, rales or wheezes, normal respiratory effort CARDIOVASCULAR: regular rate and rhythm, S1 and 2 heard without murmurs, gallops or rubs, no JVD, no peripheral edema CHEST: inspection of chest was normal GASTROINTESTINAL: soft, nontender, ND, no guarding, +small lap sites healing w ell MUSCULOSKELETAL: strength 5/5 throughout, head is normocephalic and atraumatic SKIN: warm and dry NEUROLOGIC: CN 2-12 grossly intact, no sensory deficit, normal cognition, normal speech, no tremor PSYCHIATRIC: alert cooperative and oriented to person, place and time. Updated Medication List Medication Instructions Recorded Confirmed Type cyanocobalamin (vitamin B-12) 1,000 mcg PO QAM 10/03/20 11/02/22 History 1,000 mcg tablet (Vitamin B-12) duloxetine 60 mg capsule,delayed 60 mg PO HS 10/03/20 11/02/22 History release (Cymbalta) omeprazole magnesium 20 mg 20 mg PO QAM 10/06/20 11/02/22 History capsule,delayed release cyclobenzaprine 10 mg tablet 10 mg PO HS PRN Muscle Spasm 11/02/22 11/02/22 History gabapentin 400 mg capsule 400 mg PO QAM 11/02/22 11/02/22 History gabapentin 600 mg tablet 600 mg PO HS 11/02/22 11/02/22 History liraglutide (weight loss) 3 mg/0.5 2.4 mg subcut QAM 11/02/22 11/02/22 History mL (18 mg/3 mL) subcut pen injector (Saxenda) meloxicam 15 mg tablet 15 mg PO HS 11/02/22 11/02/22 History Hospital Stay Data Consultations 11/03/22 01:32 ED Decision to Admit Stat 11/03/22 08:00 Consult General Surgery Routine Procedures Performed Operation Date: 11/03/22 08:00 Actual Procedures p Laparoscopic Cholecystectomy(Not Applicable) - Jesus Lowe, DO Diagnostic Imagining Performed 11/02/22 21:45 US gallbladder Stat 11/02/22 23:17 CT Abd and Pelvis [CT abd pelvis IV con only] Stat Pending Results Patient Have Any Pending Studies at Discharge: Yes Discharge Instructions Given to Patient (Per Discharging Provider) Ok to shower in 48 hrs. You have surgical glue over your incisions. No soaking or scrubbing your incisions. Prescription pain medication was sent to your pharmacy. Please use as prescribed. Total Time Total Time Spent Total Time Spent (In Minutes): 60
== END 2022-11-03 14:36 | disposition home or self-care (01) ==
LOC: ED 20:49 → 3W 11-03 03:11 → INTOOBSV 11-03 03:11 → 3W 11-03 04:13
DX: Z88.5 Allergy status to narcotic agent; Z87.891 Personal history of nicotine dependence; R10.13 Epigastric pain; Z79.899 Other long term (current) drug therapy